=== PATIENT | female | born 1995 | race Caucasian/White ===

== ENCOUNTER 2016-11-08 22:48 | Emergency (ER) | payer OTHER ==
[~2016-11-08] VITALS: Ht 165.1 cm; Wt 60.8 kg
[2016-11-08 23:07] VITALS: BP 108/71
--- NOTE | 2016-11-08 23:31 | NUR ---
PT TAKEN TO BED 7
--- NOTE | 2016-11-08 23:40 | NUR ---
Dr. Khanna evaluating patient at bedside.
--- NOTE | 2016-11-08 23:46 | NUR ---
PATIENT PRESENTS TO ED WITH N/V/D AND RUQ ABD PAIN . PT STATES SHE HAD DIARRHEA X10 TODAY . SKIN IS PINK/WARM/DRY; AAOX4 WITH EVEN AND STEADY GAIT; LUNGS CLEAR BL; HR EVEN AND REGULAR; PT DENIES ANY FEVER, CP, SOB, OR COUGH AT THIS TIME; PATIENT STATES PAIN OF 4/10 AT THIS TIME; VSS; PATIENT POSITIONED FOR COMFORT; HOB ELEVATED; BEDRAILS UP X2; BED DOWN. ER MD MADE AWARE OF PT STATUS.
[2016-11-08] MEDS ORDERED: ONDANSETRON 4 MG/5 ML ORASYR PO ONE (23:50)
[2016-11-09 00:36] VITALS: BP 108/71
--- NOTE | 2016-11-09 00:40 | NUR ---
PER DR MEZA, Patient discharged with v/s stable. Written and verbal after care instructions given and explained. Patient alert, oriented and verbalized understanding of instructions. Ambulatory with steady gait. All questions addressed prior to discharge. ID band removed. Patient advised to follow up with PMD. Rx of ZOFRAN given. Patient educated on indication of medication including possible reaction and side effects. Opportunity to ask questions provided and answered. DC NOTE ONLY
== END 2016-11-09 00:40 | disposition home or self-care (01) ==
LOC: MED 22:48
DX: A08.4 Viral intestinal infection, unspecified (principal)
CPT/HCPCS: 81025; 99283; Q0162; 81002